=== PATIENT | male | born 1960 | race African-American/Black ===

== ENCOUNTER 2017-08-26 12:51 | Inpatient (IN) | payer BC ==
[2017-08-26 16:31] VITALS: BMI 33.3
--- NOTE | 2017-08-26 18:11 | HP ---
COWS - Scale Resting Pulse: 2= NE 101-120 Sweatin=Flushed/Facial Moisture Restless Observation: 3= Extraneous Movement Pupil Size: 2= Moderately Dilated Bone or Joint Aches: 2= Severe Diffuse Aches Runny Nose/ Eye Tearin= Runny Nose/Eyes GI Upset > 30mins: 3= Vomiting/Diarrhea Tremor Observation: 2= Slight Tremor Visible Yawning Observation: 2= >3x During Session Anxiety or Irritability: 2=Irritable/Anxious Goose Flesh Skin: 0=Smooth Skin COWS Score: 22 Admission ROS S - HPI Chief Complaint: i need help to stop using heroin and cocaine Allergies/Adverse Reactions: Allergies Allergy/AdvReac Type Severity Reaction Status Date / Time No Known Allergies Allergy Verified 08/26/17 17:32 History of Present Illness: this 56 years old male with heroin annd cocaine dependence,seeking detox, withdrawal symptom,last detox [facility] 10/02/11 to 10/08/11 hypertension nicotine dependence anxiety,depression,insomnia no significant period of sobriety Exam Limitations: No Limitations - Ebola screening Have you traveled outside of the country in the last 21 days: No Have you been sick,other than usual withdrawal symptoms: No - Review of Systems Constitutional: Chills, Loss of Appetite, Malaise, Night Sweats, Changes in sleep, Weakness EENT: reports: Tearing, Nose Congestion Respiratory: reports: No Symptoms reported Cardiac: reports: No Symptoms Reported GI: reports: Diarrhea, Nausea, Vomiting, Abdominal cramping : reports: No Symptoms Reported Musculoskeletal: reports: Back Pain, Joint Pain, Muscle Pain, Joint Stiffness Integumentary: reports: Dryness Endocrine: reports: No Symptoms Reported Hematology: reports: No Symptoms Reported Psychiatric: reports: Judgement Intact, Mood/Affect Appropiate, Orientated x3 ( insomnia), Agitated, Anxious Patient History - Patient Medical History Hx Asthma: Yes (currently medication) Hx Chronic Obstructive Pulmonary Disease (COPD): No Hx Cardiac Disorders: No Hx Hypertension: Yes (currently on MEDICATIONS) Hx Seizures: No Hx Diabetes: No Hx Gastrointestinal Disorders: No Hx Genitourinary Disorders: No Hx Sexually Transmitted Disorders: No Hx Renal Disease (ESRD): No Hx Human Immunodeficiency Virus (HIV): No (negative 2017 last) Hx Hepatitis C: No Hx Depression: No Hx Suicide Attempt: No Hx Bipolar Disorder: No Hx Schizophrenia: No Other Medical History: no suicidal,no homicidal - Patient Surgical History Past Surgical History: Yes Hx Neurologic Surgery: No Hx Cataract Extraction: No Hx Cardiac Surgery: No Hx Lung Surgery: No Hx Breast Surgery: No Hx Breast Biopsy: No Hx Abdominal Surgery: No Hx Appendectomy: No Hx Cholecystectomy: No Hx Genitourinary Surgery: No Hx Section: No Hx Orthopedic Surgery: No Other Surgical History: removal of cyst, upper back in 03/2011 Anesthesia Reaction: No - PPD History Previous Implant?: Yes Implanted On Prior [facility] Admission?: Yes Date: 10/08/11 PPD to be Administered?: Yes - Smoking Cessation Smoking history: Current every day smoker Have you smoked in the past 12 months: Yes Aproximately how many cigarettes per day: 40 Hx Chewing Tobacco Use: No Initiated information on smoking cessation: Yes 'Breaking Loose' booklet given: 08/26/17 - Substance & Tx. History Hx Alcohol Use: No Hx Substance Use: Yes Substance Use Type: Cocaine, Heroin Hx Substance Use Treatment: Yes ([facility] 10/06/11 to 10/10/11) - Substances Abused Heroin Route: Inhalation Frequency: Daily Amount used: 20-30 BAGS DAILY $200-$300 Age of first use: 34 Date of Last Use: 08/26/17 Cocaine Route: Inhalation Frequency: Daily Amount used: 1GM-2GM Age of first use: 19 Date of Last Use: 08/25/17 Family Disease History - Family Disease History Family History: Denies Admission Physical Exam S - Vital Signs Vital Signs: Vital Signs - 24 hr 08/26/17 16:29 Temperature 98.6 F Pulse Rate 105 H Respiratory 18 Rate Blood Pressure 123/88 - Physical General Appearance: Yes: Moderate Distress, Tremorous, Irritable, Sweating, Anxious HEENTM: Yes: Normocephalic, HARJIT, Pharynx Normal Respiratory: Yes: Lungs Clear, Normal Breath Sounds, No Respiratory Distress Neck: Yes: Within Normal Limits, Supple, Trachea in good position Breast: Yes: Within Normal Limits Cardiology: Yes: Within Normal Limits, Regular Rhythm, Regular Rate, S1, S2 Abdominal: Yes: Within Normal Limits, Normal Bowel Sounds, Non Tender, Flat, Soft Genitourinary: Yes: Within Normal Limits Back: Yes: Normal Inspection, Muscle Spasm Musculoskeletal: Yes: full range of Motion, Back pain, Joint Stiffness, Muscle Pain Extremities: Yes: Within Normal Limits, Normal Range of Motion, Tremors Neurological: Yes: accounts receivable associate II-XII NML intact, Fully Oriented, Alert, Motor Strength 5/5 Integumentary: Yes: Dry Lymphatic: Yes: Within Normal Limits - Diagnostic (1) Opioid dependence with withdrawal Status: Acute (2) Asthma Status: Chronic (3) Essential hypertension Status: Chronic (4) Cocaine dependence Status: Chronic (5) Nicotine dependence Status: Chronic Cleared for Admission [facility] - Detox or Rehab [facility] Level of Care: Medically Managed Detox Regimen/Protocol: Methadone [facility] Breath Alcohol Content Breath Alcohol Content: 0 Urine Drug Screen - Results Drug Screen Negative: Yes Urine Drug Screen Results: ALEX-Cocaine, OPI-Opiates
[2017-08-26] MEDS ORDERED: MENTHOL/PHENOL 1 EACH UD MM PRN (18:29)
[2017-08-26] MEDS ORDERED: NICOTINE POLACRILEX 2 MG GUM BC PRN (18:29)
[2017-08-26] MEDS ORDERED: LOPERAMIDE HCL 2 MG CAPSULE PO PRN (18:29)
[2017-08-26] MEDS ORDERED: P-EPHED 60MG/TRIPROLIDI 2.5MG TABLET PO PRN (18:29)
[2017-08-26] MEDS ORDERED: hydrOXYzine PAMOATE 50 MG CAPSULE (FP) PO PRN (18:29)
[2017-08-26] MEDS ORDERED: MAGNESIUM CITRATE 300 ML BOTTLE PO PRN (18:29)
[2017-08-26] MEDS ORDERED: guaiFENesin/D-METHORPHAN HB 10 ML UNIT-DOSE CUPS PO PRN (18:29)
[2017-08-26] MEDS ORDERED: MAG HYDROX/AL HYDROX/SIMETH 30 ML UNIT-DOSE CUP PO PRN (18:29)
[2017-08-26] MEDS ORDERED: ACETAMINOPHEN 325 MG TABLET (FP) PO PRN (18:29)
[2017-08-26] MEDS ORDERED: METHADONE HCL 10 MG TABLET (FOR DETOX USE ONLY) PO ONE ×2 (18:29→23:00)
[2017-08-26] MEDS ORDERED: MAGNESIUM HYDROX 2400MG/30ML ORAL SUSPENSION 30 ML CUP PO PRN (18:29)
[2017-08-26] MEDS ORDERED: ALBUTEROL SO4 18 GM HFA INHALER IH PRN (18:33)
[2017-08-26] MEDS ORDERED: METHADONE HCL 10 MG TABLET (FOR DETOX USE ONLY) ONE (20:43)
[2017-08-26] MEDS: diazePAM 5 MG TABLET PO PRN (20:49)
[2017-08-26] MEDS: NICOTINE 21 MG/24 HOURS TOPICAL PATCH TD SCH (20:52)
[2017-08-26] MEDS ORDERED: MELATONIN 5 MG TABLETS PO PRN (22:00)
[2017-08-26 22:42] LABS: URINE APPEARANCE TURBID; URINE BILIRUBIN NEGATIVE (<2.0 mg/dL); URINE COLOR AMBER; URINE GLUCOSE (UA) 1+ (NEGATIVE); URINE KETONE TRACE (NEGATIVE); URINE LEUK ESTERASE NEGATIVE (NEGATIVE); URINE NITRITE NEGATIVE (NEGATIVE)
[2017-08-26 22:43] LABS: URINE PROTEIN 1+ (NEGATIVE)
[2017-08-26] MEDS: THIAMINE HCL 100 MG TABLET (FP) PO SCH (22:46)
[2017-08-26 22:53] LABS: EPI CELLS RARE /HPF (FEW); URINE BACTERIA RARE /hpf (NONE SEEN); URINE MUCUS MODERATE
--- NOTE | 2017-08-27 07:08 | CONSULT ---
[facility] Psychiatric Consult - Data Date of interview: 08/27/17 Identifying data: Mr Judd is a 56 years old, unemployed seeking detox treatment for opioid and cocaine Substance Abuse History: Reports history of heroin and cocaine use Medical History: Significant for bronchial asthma, hypertension and history of surgery for removal of cyst in upper back. Smokes cigarettes 2 ppd
[2017-08-27 09:25] LABS: HEMATOCRIT 40.9 % (35.4-49); HEMOGLOBIN 13.2 GM/dL (11.7-16.9); MCH 28.2 pg (25.7-33.7); MCHC 32.4 g/dl (32.0-35.9); MEAN CELL VOLUME 87.1 fl (80-96); MEAN PLT VOLUME 9.3 fl (7.5-11.1); PLATELET COUNT 201 K/MM3 (134-434); RBC 4.69 M/mm3 (4.00-5.60); RDW 14.6 % (11.9-15.9); WHITE BLOOD COUNT 9.5 K/mm3 (4.0-10.0)
[2017-08-27 09:42] LABS: CHLORIDE 105 mmol/L (98-107); POTASSIUM 4.1 mmol/L (3.5-5.1); SODIUM 143 mmol/L (136-145)
[2017-08-27] MEDS ORDERED: PATIENT'S OWN MEDICATION (NON-FORMULARY) (Valsartan/Hydrochlorothiazide [Valsartan-Hctz 32 PO SCH (10:00)
[2017-08-27] MEDS ORDERED: METHADONE HCL 10 MG TABLET (FOR DETOX USE ONLY) PO ONE (10:00)
[2017-08-27 10:03] LABS: ALBUMIN 3.1 g/dl (3.4-5.0); ALK PHOS 100 U/L (45-117); ANION GAP 6 (8-16); BILIRUBIN,TOTAL 0.4 mg/dL (0.2-1.0); BLOOD UREA NITROGEN 13 mg/dL (7-18); CALCIUM 8.5 mg/dL (8.5-10.1); CO2 32 mmol/L (21-32); GLUCOSE,RANDOM 152 mg/dL (74-106); SGOT/AST 12 U/L (15-37); SGPT/ALT 23 U/L (12-78); TOT PROT 7.2 g/dl (6.4-8.2)
--- NOTE | 2017-08-27 10:05 | EKG ---
Test Reason : Blood Pressure : / mmHG Vent. Rate : 094 BPM Atrial Rate : 094 BPM P-R Int : 142 ms QRS Dur : 094 ms QT Int : 358 ms P-R-T Axes : 063 -43 033 degrees QTc Int : 447 ms NORMAL SINUS RHYTHM LEFT AXIS DEVIATION INFERIOR INFARCT , AGE UNDETERMINED ABNORMAL ECG NO PREVIOUS ECGS AVAILABLE Confirmed by ANKUR DAWN MD ([id number]) on 08/27/2017 10:05:43 AM Referred By: Jose Nuñez Confirmed By:ANKUR DAWN MD
[2017-08-27] MEDS: PRENATAL VITAMINS W/ FOLIC ACID TABLET (FP) PO SCH (10:47)
[2017-08-27] MEDS: NICOTINE 21 MG/24 HOURS TOPICAL PATCH TD SCH (10:48)
[2017-08-27] MEDS: HYDROCHLOROTHIAZIDE 25 MG TABLET (FP) PO SCH (10:48)
[2017-08-27] MEDS: ASPIRIN 81 MG CHEWABLE TABLETS PO SCH (10:48)
[2017-08-27] MEDS: diazePAM 5 MG TABLET PO PRN ×2 (10:49→21:43)
[2017-08-27] MEDS: VALSARTAN 160 MG TABLET (UD) PO SCH (11:24)
--- NOTE | 2017-08-27 13:33 | PN ---
S Progress Note Note: Patient was approached several times at his bedside. He has been sleeping profoundly, not waking up for meals(breakfast, lunch) and medications. Not appropriate for interview at this time. Re consult when patient is fully awake and appropriate for interview
--- NOTE | 2017-08-27 15:29 | PN ---
[facility] COWS - Scale Resting Pulse: 0= VT 80 or Below Sweatin= Chills/Flushing Restless Observation: 3= Extraneous Movement Pupil Size: 1= Pupils >than Normal Bone or Joint Aches: 2= Severe Diffuse Aches Runny Nose/ Eye Tearin= Runny Nose/Eyes GI Upset > 30mins: 2= Nausea/Diarrhea Tremor Observation of Outstretched Hands: 2= Slight Tremor Visible Yawning Observation: 1= 1-2x During Session Anxiety or Irritability: 2=Irritable/Anxious Goose Flesh Skin: 0=Smooth Skin COWS Score: 16 S Progress Note (SOAP) Subjective: Refused to speak with process description writer (asleep but easily aroused) Objective: 08/27/17 15:25 Last Vital Signs Temp Pulse Resp BP Pulse Ox 96.1 F L 70 18 112/70 08/27/17 15:12 08/27/17 15:12 08/27/17 15:12 08/27/17 15:12 Laboratory Tests 08/26/17 08/27/17 08/27/17 22:20 07:45 07:45 WBC 9.5 RBC 4.69 Hgb 13.2 D Hct 40.9 D MCV 87.1 MCH 28.2 MCHC 32.4 RDW 14.6 Plt Count 201 MPV 9.3 Sodium 143 Potassium 4.1 Chloride 105 Carbon Dioxide 32 Anion Gap 6 L BUN 13 Creatinine 1.0 Creat Clearance w eGFR > 60 Random Glucose 152 H D Calcium 8.5 Total Bilirubin 0.4 D AST 12 L ALT 23 Alkaline Phosphatase 100 D Total Protein 7.2 Albumin 3.1 L D Urine Color Saira Urine Appearance Turbid Urine pH 5.0 D Ur Specific [place] 1.036 H Urine Protein 1+ H Urine Glucose (UA) 1+ H Urine Ketones Trace H Urine Blood Negative Urine Nitrite Negative Urine Bilirubin Negative Urine Urobilinogen 2.0 Ur Leukocyte Esterase Negative Urine WBC (Auto) 8 Urine RBC (Auto) 1 Ur Epithelial Cells Rare Urine Bacteria Rare Urine Mucus Moderate RPR Titer 08/27/17 07:45 WBC RBC Hgb Hct MCV MCH MCHC RDW Plt Count MPV Sodium Potassium Chloride Carbon Dioxide Anion Gap BUN Creatinine Creat Clearance w eGFR Random Glucose Calcium Total Bilirubin AST ALT Alkaline Phosphatase Total Protein Albumin Urine Color Urine Appearance Urine pH Ur Specific [place] Urine Protein Urine Glucose (UA) Urine Ketones Urine Blood Urine Nitrite Urine Bilirubin Urine Urobilinogen Ur Leukocyte Esterase Urine WBC (Auto) Urine RBC (Auto) Ur Epithelial Cells Urine Bacteria Urine Mucus RPR Titer Nonreactive Labs reviewed: glucose 152, abnormal UA Assessment: 08/27/17 15:27 Withdrawal symptoms Noted with hyperglycemia and abnormal UA Plan: Continue detox Hyperglycemia: repeat fasting glucose, send HbA1c Abnormal UA: encouraged to drink lots of water for hydration, repeat UA
[2017-08-27] MEDS: IBUPROFEN 400 MG TABLET (FP) PO PRN (20:12)
[2017-08-27] MEDS: THIAMINE HCL 100 MG TABLET (FP) PO SCH (21:42)
[2017-08-27] MEDS ORDERED: cloNIDine HCL 0.1 MG TABLET PO ONE (21:45)
[2017-08-28] MEDS: IBUPROFEN 400 MG TABLET (FP) PO PRN (02:02)
--- NOTE | 2017-08-28 06:18 | PN ---
[facility] Progress Note Note: Patient's blood pressure was B/P172/108. Patient is asymptomatic Vital Signs - 8 hr 08/27/17 08/27/17 08/28/17 22:32 23:53 00:40 Temperature 99.2 F Pulse Rate 85 90 Respiratory 20 18 18 Rate Blood Pressure 172/108 198/117 08/28/17 08/28/17 02:02 02:30 Temperature 97.1 F L 98.7 F Pulse Rate 97 H 97 H Respiratory 16 18 Rate Blood Pressure 145/102 122/83 Action: Clonidine 0.1mg tablet ordered. Blood pressure now is B/P 122/83
[2017-08-28] MEDS ORDERED: cloNIDine HCL 0.1 MG TABLET PO ONE (06:50)
[2017-08-28 06:54] VITALS: BP 181/105; PULSE 65; TEMP 97.2
--- NOTE | 2017-08-28 06:59 | PN ---
[facility] Progress Note Note: Patient 's blood pressure this morning is B/P 185/105. Patient is asymptomatic Vital Signs Temperature 97.2 F L 08/28/17 06:53 Pulse Rate 65 08/28/17 06:53 Respiratory Rate 18 08/28/17 06:53 Blood Pressure 181/105 08/28/17 06:53 O2 Sat by Pulse Oximetry (%) Laboratory Last Values WBC 9.5 K/mm3 (4.0-10.0) 08/27/17 07:45 RBC 4.69 M/mm3 (4.00-5.60) 08/27/17 07:45 Hgb 13.2 GM/dL (11.7-16.9) D 08/27/17 07:45 Hct 40.9 % (35.4-49) D 08/27/17 07:45 MCV 87.1 fl (80-96) 08/27/17 07:45 MCH 28.2 pg (25.7-33.7) 08/27/17 07:45 MCHC 32.4 g/dl (32.0-35.9) 08/27/17 07:45 RDW 14.6 % (11.9-15.9) 08/27/17 07:45 Plt Count 201 K/MM3 (134-434) 08/27/17 07:45 MPV 9.3 fl (7.5-11.1) 08/27/17 07:45 Sodium 143 mmol/L (136-145) 08/27/17 07:45 Potassium 4.1 mmol/L (3.5-5.1) 08/27/17 07:45 Chloride 105 mmol/L (98-107) 08/27/17 07:45 Carbon Dioxide 32 mmol/L (21-32) 08/27/17 07:45 Anion Gap 6 (8-16) L 08/27/17 07:45 BUN 13 mg/dL (7-18) 08/27/17 07:45 Creatinine 1.0 mg/dL (0.7-1.3) 08/27/17 07:45 Creat Clearance w eGFR > 60 (>60) 08/27/17 07:45 Random Glucose 152 mg/dL (74-106) H D 08/27/17 07:45 Calcium 8.5 mg/dL (8.5-10.1) 08/27/17 07:45 Total Bilirubin 0.4 mg/dL (0.2-1.0) D 08/27/17 07:45 AST 12 U/L (15-37) L 08/27/17 07:45 ALT 23 U/L (12-78) 08/27/17 07:45 Alkaline Phosphatase 100 U/L (45-117) D 08/27/17 07:45 Total Protein 7.2 g/dl (6.4-8.2) 08/27/17 07:45 Albumin 3.1 g/dl (3.4-5.0) L D 08/27/17 07:45 Urine Color Saira 08/26/17 22:20 Urine Appearance Turbid 08/26/17 22:20 Urine pH 5.0 (5.0-8.0) D 08/26/17 22:20 Ur Specific [place] 1.036 (1.001-1.035) H 08/26/17 22:20 Urine Protein 1+ (NEGATIVE) H 08/26/17 22:20 Urine Glucose (UA) 1+ (NEGATIVE) H 08/26/17 22:20 Urine Ketones Trace (NEGATIVE) H 08/26/17 22:20 Urine Blood Negative (NEGATIVE) 08/26/17 22:20 Urine Nitrite Negative (NEGATIVE) 08/26/17 22:20 Urine Bilirubin Negative (<2.0 mg/dL) 08/26/17 22:20 Urine Urobilinogen 2.0 mg/dL (0.2-1.0) 08/26/17 22:20 Ur Leukocyte Esterase Negative (NEGATIVE) 08/26/17 22:20 Urine WBC (Auto) 8 /hpf (3-5) 08/26/17 22:20 Urine RBC (Auto) 1 /hpf (0-3) 08/26/17 22:20 Ur Epithelial Cells Rare /HPF (FEW) 08/26/17 22:20 Urine Bacteria Rare /hpf (NONE SEEN) 08/26/17 22:20 Urine Mucus Moderate 08/26/17 22:20 RPR Titer Nonreactive (NONREACTIVE) 08/27/17 07:45 Action: Clonidine 0.2mg tablet oral ordered
--- NOTE | 2017-08-28 08:49 | EKG ---
Test Reason : Blood Pressure : / mmHG Vent. Rate : 073 BPM Atrial Rate : 073 BPM P-R Int : 148 ms QRS Dur : 094 ms QT Int : 416 ms P-R-T Axes : 029 -30 014 degrees QTc Int : 458 ms NORMAL SINUS RHYTHM LEFT AXIS DEVIATION ABNORMAL ECG WHEN COMPARED WITH ECG OF 26-AUG-2017 20:56, NO SIGNIFICANT CHANGE WAS FOUND BASELINE ARTIFACT Confirmed by ANTHONY OSBORNE, TOBY ([id number] on 08/28/2017 8:48:56 AM Referred By: Jose Nuñez Confirmed By:TOBY CRUZ MD
[2017-08-28] MEDS: PRENATAL VITAMINS W/ FOLIC ACID TABLET (FP) PO SCH (09:45)
[2017-08-28] MEDS: HYDROCHLOROTHIAZIDE 25 MG TABLET (FP) PO SCH (09:45)
[2017-08-28] MEDS: NICOTINE 21 MG/24 HOURS TOPICAL PATCH TD SCH (09:45)
[2017-08-28] MEDS: VALSARTAN 160 MG TABLET (UD) PO SCH (09:45)
[2017-08-28] MEDS: ASPIRIN 81 MG CHEWABLE TABLETS PO SCH (09:45)
[2017-08-28] MEDS ORDERED: METHADONE HCL 5 MG TABLET (FOR DETOX USE ONLY) PO ONE (10:00)
--- NOTE | 2017-08-28 15:24 | PN ---
S Progress Note (SOAP) Subjective: Sleep disturbance Sweats Shakes Requesting higher dose of methadone, Objective: 08/28/17 15:29 A & O x 3 Irritable Sweats Vital Signs Temperature 97.2 F L 08/28/17 06:53 Pulse Rate 65 08/28/17 06:53 Respiratory Rate 18 08/28/17 06:53 Blood Pressure 181/105 08/28/17 06:53 O2 Sat by Pulse Oximetry (%) Agitating to leave despite repeated education and encouragement to have him stay. Assessment: 08/28/17 15:30 withdrawal sx Plan: To leave AMA
--- NOTE | 2017-08-28 15:38 | DS ---
[facility] Detox Discharge Summary Admission Date: 08/26/17 Discharge Date: 08/28/17 - History Present History: Cocaine Dependence, Opioid Dependence Additional Comments: Pt agitating to leave because he wants higher dose of methadone than that being given him at detox despite being educated that he is feeling withdrawal sx which will pass and encouraged to stay and complete detox. Pt not receptive to the education, will sign out Against Medical Advice. Declines prescription for asthma and HTN meds, states he has enough for now Hx of Asthma HTN - Physical Exam Results Vital Signs: Vital Signs Temperature 97.2 F L 08/28/17 06:53 Pulse Rate 65 08/28/17 06:53 Respiratory Rate 18 08/28/17 06:53 Blood Pressure 181/105 08/28/17 06:53 O2 Sat by Pulse Oximetry (%) Pertinent Admission Physical Exam Findings: withdrawal sx Anxiety - Medication Discharge Medications: Ambulatory Orders Albuterol Sulfate Inhaler - [Ventolin HFA Inhaler -] 1 - 2 inh IH Q4H PRN Aspirin 81 mg PO DAILY 08/26/17 Valsartan/Hydrochlorothiazide [Valsartan-Hctz 320-25 mg Tab] 320 mg PO DAILY - Diagnosis (1) Alcohol dependence with uncomplicated withdrawal Status: Acute (2) Opioid dependence with withdrawal Status: Acute (3) Asthma Status: Chronic (4) Cocaine dependence Status: Chronic (5) Essential hypertension Status: Chronic (6) Nicotine dependence Status: Chronic - AMA Did Patient Leave Against Medical Advice: Yes
[2017-08-29] MEDS ORDERED: METHADONE HCL 5 MG TABLET (FOR DETOX USE ONLY) PO ONE (10:00)
[2017-08-30] MEDS ORDERED: METHADONE HCL 10 MG TABLET (FOR DETOX USE ONLY) PO ONE (10:00)
[2017-08-31] MEDS ORDERED: METHADONE HCL 5 MG TABLET (FOR DETOX USE ONLY) PO ONE (06:00)
== END 2017-08-28 09:22 | disposition left against medical advice (07) | DRG 894 ==
LOC: YASAS 12:51 → Y3N 18:05
PROVIDERS: ADMIT Internal Medicine; ATTEND Internal Medicine
PROC: HZ2ZZZZ Detoxification Services for Substance Abuse Treatment (ICD-10-PCS; principal; 2017-08-26)
DX: F11.23 Opioid dependence with withdrawal (principal); F14.20 Cocaine dependence, uncomplicated; F10.230 Alcohol dependence with withdrawal, uncomplicated; F17.210 Nicotine dependence, cigarettes, uncomplicated; F41.9 Anxiety disorder, unspecified; I10 Essential (primary) hypertension; R73.9 Hyperglycemia, unspecified; R82.90 Unspecified abnormal findings in urine
CPT/HCPCS: 36415; 80053; 81003; 81015; 82947; 83036; 85027; 86593; 93005; 93010; J0735